=== PATIENT | female | born 2000 | race African-American/Black ===

== ENCOUNTER 2019-05-02 13:06 | Emergency (ER) | payer SELFPAY ==
[2019-05-02 13:39] LABS: #Eosinphils 0.1 thou/uL (0.0-0.7); #Lymphocytes 2.2 thou/uL (1.20-3.40); #Monocytes 0.3 thou/uL (0.11-0.59); #Neutrophils 2.7 thou/uL (1.40-6.50); %Basophils 0.4 % (0.0-1.0); %Eosinophils 2.1 % (0.0-10.0); %Lymphocytes 41.6 % (28.0-48.0); %Monocytes 5.7 % (0.0-4.0); %Neutrophils 50.3 % (31.0-61.0); Hemoglobin 13.5 g/dL (12.0-16.0); Mean Corpuscular HGB CONC 33.7 g/dL (32.0-36.0); Mean Corpuscular Hemoglobin 30.5 pg (25.0-35.0); Mean Corpuscular Volume 90.4 fL (78.0-98.0); Platelet Count 227 thou/uL (130-400); RBC Distribution Width 12.4 % (11.5-14.5); Red Blood Cell (RBC) Count 4.44 mill/uL (4.00-5.20); White Blood Cell (WBC) Count 5.3 thou/uL (4.8-10.8)
[2019-05-02 14:00] LABS: ALT (SGPT) 12 U/L (8-55); AST (SGOT) 15 U/L (5-34); Albumin 4.2 g/dL (3.5-5.0); Alkaline Phosphatase 86 U/L (40-150); Anion Gap 11 mmol/L (10-20); BUN (Urea Nitrogen) 8 mg/dL (7.0-18.7); Bilirubin, Total 0.4 mg/dL (0.2-1.2); Calc. Creatinine Clearance 0 mL/min (70-130); Calcium 9.3 mg/dL (7.8-10.44); Carbon Dioxide 25 mmol/L (22-29); Chloride 105 mmol/L (98-107); Estimated GFR-MDRD Greater than 90; Globulin 2.9 g/dL (2.4-3.5); Glucose 90 mg/dL (70-105); Lipase 14 U/L (8-78); Potassium 3.6 mmol/L (3.5-5.1); Protein, Total 7.1 g/dL (6.0-8.3); Sodium 137 mmol/L (136-145)
[2019-05-02 14:41] LABS: Bilirubin Negative (Negative); Blood, Urine Negative (Negative); Clarity Turbid (Clear); Glucose, Urine (Dipstick) Normal (Negative); Leukocyte Negative Leu/uL (Negative); Nitrite Negative (Negative); Protein, Urine (Dipstick) 20 mg/dL (Neg-Trace); Urobilinogen Normal mg/dL (Less than 2)
[2019-05-02 14:47] LABS: Pregnancy Test - Urine (BHCG) Negative (Negative); Pregu Control Background? CLEAR/WHITE (CLR/WHITE); Pregu Control Bar Appear? YES (CONTROL BAR); Specific Gravity 1.023 (1.002-1.036)
[2019-05-05 01:09] LABS: Chlamydia by PCR Not Detected (NotDetected); GC by PCR Not Detected (NotDetected)
== END 2019-05-02 16:50 | disposition home or self-care (01) ==
LOC: ERS 13:06
DX: B37.3 Candidiasis of vulva and vagina (principal); F17.210 Nicotine dependence, cigarettes, uncomplicated
CPT/HCPCS: 36415; 80053; 81003; 81025; 83690; 85025; 87480; 87491; 87510; 87591; 87660; 99283

== ENCOUNTER 2019-12-11 23:19 | Emergency (ER) | payer SELFPAY ==
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
[2019-12-12] MEDS ORDERED: Acetaminophen 500 MG TAB ONE (00:05)
== END 2019-12-12 00:30 | disposition home or self-care (01) ==
LOC: ERS 23:19
DX: S06.9X9A Unspecified intracranial injury with loss of consciousness of unspecified duration, initial encounter (principal); S50.01XA Contusion of right elbow, initial encounter; F17.210 Nicotine dependence, cigarettes, uncomplicated; Y04.0XXA Assault by unarmed brawl or fight, initial encounter
CPT/HCPCS: 70450

== ENCOUNTER 2020-01-08 21:36 | Emergency (ER) | payer SELFPAY ==
[2020-01-08 22:09] LABS: #Basophils 0.1 thou/uL (0.0-0.2); #Eosinphils 0.1 thou/uL (0.0-0.7); #Lymphocytes 1.9 thou/uL (1.20-3.40); #Monocytes 0.6 thou/uL (0.11-0.59); #Neutrophils 3.6 thou/uL (1.40-6.50); %Basophils 0.8 % (0.0-1.0); %Eosinophils 1.4 % (0.0-10.0); %Lymphocytes 30.9 % (28.0-48.0); %Monocytes 9.9 % (0.0-4.0); Hemoglobin 13.8 g/dL (12.0-16.0); Mean Corpuscular HGB CONC 34.4 g/dL (32.0-36.0); Mean Corpuscular Hemoglobin 30.9 pg (25.0-35.0); Mean Corpuscular Volume 89.9 fL (78.0-98.0); Mean Platelet Volume 9.1 fL (7.4-10.4); Platelet Count 313 thou/uL (130-400); RBC Distribution Width 12.2 % (11.5-14.5); Red Blood Cell (RBC) Count 4.46 mill/uL (4.00-5.20); White Blood Cell (WBC) Count 6.3 thou/uL (4.8-10.8)
[2020-01-08 22:32] LABS: ALT (SGPT) 15 U/L (8-55); AST (SGOT) 17 U/L (5-34); Acetaminophen Less than 6.0 mcg/mL (10.0-30.0); Albumin 4.7 g/dL (3.5-5.0); Alcohol 21 mg/dL (Less than 10); Alkaline Phosphatase 98 U/L (40-100); Anion Gap 15 mmol/L (10-20); BUN (Urea Nitrogen) 8 mg/dL (7.0-18.7); Bilirubin, Total 0.4 mg/dL (0.2-1.2); Calc. Creatinine Clearance 0 mL/min (70-130); Calcium 9.7 mg/dL (7.8-10.44); Carbon Dioxide 23 mmol/L (22-29); Chloride 106 mmol/L (98-107); Estimated GFR-MDRD 88; Globulin 3.2 g/dL (2.4-3.5); Glucose 83 mg/dL (70-105); Potassium 3.3 mmol/L (3.5-5.1); Protein, Total 7.9 g/dL (6.0-8.3); Salicylate Less than 8.0 mg/dL (15.0-30.0); Sodium 141 mmol/L (136-145)
[2020-01-09 02:58] LABS: Bilirubin Negative (Negative); Blood, Urine Negative (Negative); Glucose, Urine (Dipstick) Negative (Negative); Leukocyte Negative (Negative); Nitrite Negative (Negative); Protein, Urine (Dipstick) 100 mg/dL (Neg-Trace); Urobilinogen 0.2 mg/dL (Less than 2)
[2020-01-09 03:00] LABS: Clarity Clear (Clear)
[2020-01-09 03:01] LABS: Pregnancy Test - Urine (BHCG) Negative (Negative); Pregu Control Background? CLEAR/WHITE (CLR/WHITE); Pregu Control Bar Appear? YES (CONTROL BAR); Specific Gravity 1.027 (1.002-1.036)
[2020-01-09 03:04] LABS: Bacteria/HPF None Seen HPF (None Seen); RBC/HPF None Seen HPF (0-3); Renal Epithelial None Seen HPF (None Seen); Transitional Epithelial None Seen HPF (None Seen); WBC/HPF None Seen HPF (0-3)
[2020-01-09 03:07] LABS: Amphetamine Detected (NotDetected); Barbiturates Screen Not Detected (NotDetected); Benzodiazepine Screen Not Detected (NotDetected); Cocaine Metabolite Screen Not Detected (NotDetected); Medtox Control Line Valid? VALID (VALID); Medtox Reader # READER 4; Methadone Not Detected (NotDetected); Methamphetamine Detected (NotDetected); Opiate Screen Not Detected (NotDetected); Oxycodone Screen Not Detected (NotDetected); Phencyclidine (PCP) Not Detected (NotDetected); THC/Cannabinoid Screen Detected (NotDetected); Tricyclic Screen Not Detected (NotDetected)
[2020-01-09] MEDS ORDERED: traZODone HCl 50 MG TAB ONE (04:39)
== END 2020-01-09 15:31 | disposition home or self-care (01) ==
LOC: ERS 21:36
DX: F43.20 Adjustment disorder, unspecified (principal); F10.10 Alcohol abuse, uncomplicated; F17.210 Nicotine dependence, cigarettes, uncomplicated; Y90.1 Blood alcohol level of 20-39 mg/100 ml
CPT/HCPCS: 36415; 80053; 80306; 80307; 81003; 81015; 81025; 84443; 85025; 93005

== ENCOUNTER 2020-09-15 10:02 | Outpatient (CLI) | payer MEDICAID ==
[2020-09-15 17:57] LABS: SARS-CoV-2 MS2 Positive; SARS-CoV-2 N Gene Negative; SARS-CoV-2 S Gene Negative; SARS-CoV-2 by NAA Not Detected (NotDetected); SARS-CoV-2 orf1ab Negative
== END 2020-09-15 10:03 | disposition home or self-care (01) ==
LOC: LABBT 10:02
PROVIDERS: ATTEND Family Medicine
DX: Z20.828 Contact with and (suspected) exposure to other viral communicable diseases (principal)
CPT/HCPCS: 87635; U0003

== ENCOUNTER 2020-09-17 18:30 | Inpatient (IN) | payer MEDICAID, OTHER ==
[2020-09-17 19:31] VITALS: BMI 42.0
[2020-09-17] MEDS ORDERED: hydrALAZINE 20 MG/ML VIAL SLOW IVP PRN (20:53)
[2020-09-17] MEDS ORDERED: Lidocaine 1% (PF) 30 ML VIAL SC PRN (20:53)
[2020-09-17] MEDS ORDERED: NS / Oxytocin 40 units/1000ml 1,000 ML IV PRN (20:53)
[2020-09-17] MEDS ORDERED: NS w/ Oxytocin 10 units 500 ML IV SCH (21:00)
[2020-09-17 21:15] LABS: Hemoglobin 9.9 g/dL (12.0-16.0); Mean Corpuscular HGB CONC 34.6 g/dL (32.0-36.0); Mean Corpuscular Volume 89.4 fL (78.0-98.0); Mean Platelet Volume 10.3 fL (7.4-10.4); Platelet Count 168 thou/uL (130-400); RBC Distribution Width 13.7 % (11.5-14.5); Red Blood Cell (RBC) Count 3.21 mill/uL (4.20-5.40); White Blood Cell (WBC) Count 10.3 thou/uL (4.8-10.8)
[2020-09-17] MEDS ORDERED: Penicillin G Potassium 5 MILL.UNITS in Sodium Chloride 0.9% 100 ML IVPB SCH (21:15)
[2020-09-17 21:53] LABS: Syphilis Antibody Nonreactive (Nonreactive); Syphilis Antibody Index 0.04 S/CO (<1.00 Non-Reactive)
[2020-09-17 21:54] LABS: Hemoglobin 10.2 g/dL (12.0-16.0); Mean Corpuscular HGB CONC 34.2 g/dL (32.0-36.0); Mean Corpuscular Hemoglobin 31.1 pg (27.0-31.0); Mean Corpuscular Volume 90.9 fL (78.0-98.0); Mean Platelet Volume 9.5 fL (7.4-10.4); Platelet Count 166 thou/uL (130-400); RBC Distribution Width 13.4 % (11.5-14.5); Red Blood Cell (RBC) Count 3.28 mill/uL (4.20-5.40); White Blood Cell (WBC) Count 10.5 thou/uL (4.8-10.8)
[2020-09-17 22:10] LABS: Eosinophils 2 % (0-10); Lymphocytes 18 % (21-51); MDiff Complete? YES; Monocytes 9 % (0-10); Neutrophil 71 % (42-75)
--- NOTE | 2020-09-17 22:29 | PDOC.FPROB ---
FMR OB H&P: HPI - History of Present Illness Chief Complaint: mIOL for IUGR Indentification: 20 y/o at 37.4 wga by 12.2 wk sono. History of Present Illness: Pt is a 20 y/o at 37.4 wga by 12.2 wk sono who presents today for mIOL due to IUGR. Pt has been following with MFM for this. Pt states today that she is feeling well. Endorses movement and denies VB, VD, LOF, or CP/SOB, vision changes/headaches, blurry vision. 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: -hx of BV 02/13 -hx of patricia 05/15 - Surgical History Sx History: -none - Social History Social History: -tobacco use in first trimester, -no alcohol -no current drug use, has used THC in the past - Family History Family History: -FOB has child with CHD -family hx of down syndrome FMR OB H&P: Medications - Current Home Medications: Medication Instructions Recorded Confirmed Type 21/Iron Fu/Folic Acid 1 tablet PO DAILY 09/17/20 09/17/20 History [ Complete Caplet] Allergies/Adverse Reactions: Allergies Allergy/AdvReac Type Severity Reaction Status Date / Time No Known Allergies Allergy Verified 09/17/20 19:39 FMR OB H&P: ROS - Review of Systems General: denies: fever/chills, weight/appetite/sleep changes Eyes: denies: vision changes ENT: denies: nasal congestion, rhinorrhea Cardiovascular: denies: chest pain, palpitation Respiratory: denies: cough, congestion, shortness of breath Gastrointestinal: denies: abdominal pain, indigestion, bloating, cramping, nausea, vomiting, diarrhea, constipation Genitourinary (Female): denies: incontinence, dysuria, hematuria, polyuria, vaginal discharge, vaginal pain, vaginal bleeding, contractions Musculoskeletal: denies: pain FMR OB H&P: Vital Signs - Maternal Vital signs: BP 127/62, HR 90 , RR 18, Temp 98.6 - Heart Tones Baseline: 130 Variability: moderate Acceleration: present Deceleration: absent Category: category 1 [employer] contractions every: none seen on toco FMR OB H&P: Physical Exam - Physical Exam General: NAD, awake, alert and oriented Neck: supple Heart: RRR, normal S1/S2, no murmurs/rubs/gallops General: CTAB, no respiratory distress, good air movement, no rales/rhonchi, no wheezing, no retractions Abdomen: gravid Musculoskeletal: FROM in all four extremities Neurological: no focal deficit Skin: no rash, good tugor Psychiatric: intact recent and remote memory, good judgement and insight, normal mood and affect - Pelvic Exam Vulva: normal hair distribution Cervix: no masses, no lesions, no blood SVE: close, thick, high FMR OB H&P: Results - Labs Lab results: Laboratory Results - last 24 hr 09/17/20 09/17/20 09/17/20 21:05 21:05 21:05 WBC 10.3 RBC 3.21 L Hgb 9.9 L Hct 28.7 L MCV 89.4 MCH 31.0 MCHC 34.6 RDW 13.7 Plt Count 168 MPV 10.3 Neutrophils % (Manual) Lymphocytes % (Manual) Monocytes % (Manual) Eosinophils % (Manual) Syphilis IgG/IgM Ab Nonreactive Blood Type A POSITIVE Antibody Screen NEGATIVE 09/17/20 09/17/20 21:31 21:34 WBC 10.5 RBC 3.28 L Hgb 10.2 L Hct 29.8 L MCV 90.9 MCH 31.1 H MCHC 34.2 RDW 13.4 Plt Count 166 MPV 9.5 Neutrophils % (Manual) 71 Lymphocytes % (Manual) 18 L Monocytes % (Manual) 9 Eosinophils % (Manual) 2 Syphilis IgG/IgM Ab Blood Type A POSITIVE Antibody Screen FMR OB H&P: A/P Disposition: Pt is a 20 y/o at 37.4 wga by 12.2 wk sono presents for mIOL for IUGR ##sIUP presenting for mIOL -has been following with [facility] for growth scans for IUGR as well as FOB with child with CHD and most recent sono report from [facility] 09/06 showed growth was in 21st percentile with AC lagging in 9%, so had continued recommendation with induction prior to 38 wga. -maternal labs have been negative -FHT with FHR in 130s-140s with moderate variability, some acels seen, no toco ctx seen at this time -SVE: 0/0/-3 @ 22:30, cytotec placed at this time -Epidural desired -GBS positive, ppx will be given ## Gestational Diabetes with hx of excessive weight gain in this > 35 lbs -fasting glucose based on chart review was 92 -has been txt'd with diet and exercise counseling -Q4 glucose checks with Q1 during labor -aware ## Tobacco use in -aware ##Hx of bipolar disorder -aware, currently not on medication -has been f/u with [facility] during ##iron deficiency anemia during -aware -has been taking PNV and iron medication -recent H/H from 09/05 showed 9.07/26 PCP: NOAH Bolivar/Stephen Plan: cytotec placed. will continue to monitor and recheck in 3-4 hours. Discussion: Date/Time: 09/17/202228 This H&P was discussed with Dr. Dawn who agreed with plan and assessment. Addendum - Attending - Attending Attestation Date/Time: 09/18/20 [id number] I personally evaluated the patient and discussed the management with Dr. Roach and Dr Robledo last night at time of admission. I agree with the History, Examination, Assessment and Plan documented above with any addition or exceptions noted below.
[2020-09-17] MEDS: Misoprostol 100 MCG TAB VAG SCH (22:40)
[2020-09-18 00:20] LABS: HBSAg Index 0.15 S/CO (0-0.99); Hep B Surf Ag Non-Reactive S/CO (NonReactive)
[2020-09-18 03:20] LABS: Glucose 77 mg/dL (70-105)
[2020-09-18] MEDS: Misoprostol 100 MCG TAB VAG SCH ×2 (03:40→08:41)
[2020-09-18] MEDS ORDERED: Fentanyl 4 mcg/Bup 0.1% Cadd 100 ML in Premix Bag 1 BAG EPIDURAL SCH (04:00)
--- NOTE | 2020-09-18 04:37 | PDOC.LDPN ---
Labor & Delivery Progress Note - Subjective Subjective: comfortable - Objective Vital signs reviewed and normal: yes General: NAD Dilation: 0/0/-3 FHT: category 1, variability present [place] contractions every: none seen at this time Plan: continue plan of care -: Pt is a 20 y/o at 37.4 wga by 12.2 wk sono presents for mIOL for IUGR ##sIUP presenting for mIOL -has been following with [facility] for growth scans for IUGR as well as FOB with child with CHD and most recent sono report from [facility] 09/06 showed growth was in 21st percentile with AC lagging in 9%, so had continued recommendation with induction prior to 38 wga. -maternal labs have been negative -FHT with FHR in 130s-140s with moderate variability, some acels seen, no toco ctx seen at this time -SVE: 0/0/-3 @ 22:30, cytotec placed at this time -SVE: 0/0/-3 @ 0340, 2nd cytotec placed at this time -Epidural desired -GBS positive, ppx will be given ## Gestational Diabetes with hx of excessive weight gain in this > 35 lbs -fasting glucose based on chart review was 92 -has been txt'd with diet and exercise counseling -Q4 glucose checks with Q1 during labor -aware ## Tobacco use in -aware ##Hx of bipolar disorder -aware, currently not on medication -has been f/u with [facility] during ##iron deficiency anemia during -aware -has been taking PNV and iron medication -recent H/H from 09/05 showed 9.07/26 PCP: NOAH Horner Plan: 2nd cytotec placed. will continue to monitor and recheck in 3-4 hours.
[2020-09-18] MEDS ORDERED: ePHEDrine 50 MG/ML VIAL SLOW IVP PRN (05:08)
[2020-09-18] MEDS ORDERED: Ondansetron PF 4 MG/2 ML Vial IVP PRN (05:08)
[2020-09-18] MEDS ORDERED: Naloxone HCl 0.4 mg/ml Vial IVP PRN ×2 (05:08)
[2020-09-18] MEDS ORDERED: Promethazine HCl 25 MG/ML VIAL IM PRN (05:08)
[2020-09-18] MEDS ORDERED: diphenhydrAMINE 50 MG/ML VIAL IVP PRN (05:08)
[2020-09-18] MEDS ORDERED: Acetaminophen 325 MG TAB PO PRN (05:08)
[2020-09-18] MEDS ORDERED: Lactated Ringer's 500 ML IV PRN (05:08)
[2020-09-18] MEDS ORDERED: Communication Order-Pharmacy FS SCH (05:15)
[2020-09-18] MEDS: Lactated Ringer's 1,000 ML IV SCH ×2 (06:05→21:53)
[2020-09-18] MEDS: Ondansetron PF 4 MG/2 ML Vial IVP PRN (07:07)
--- NOTE | 2020-09-18 08:39 | PDOC.LDPN ---
Labor & Delivery Progress Note - Subjective Subjective: comfortable - Objective Vital signs reviewed and normal: yes General: NAD Uterine fundus: non tender Dilation: Closed Effacement: 0% Station: -3 FHT: category 1 (+ accels, no decels, moderate variability, FHT 130 baseline) [place] contractions every: Patient reports ~Q2-3min Plan: continue plan of care -: Pt is a 20 y/o at 37.4 wga by 12.2 wk sono admitted for mIOL due to IUGR ##sIUP presenting for mIOL Has been following with [facility] for growth scans for IUGR as well as FOB with child with CHD and most recent sono report from [facility] 09/06 showed growth was in 21st percentile with AC lagging in 9%, so had continued recommendation with induction prior to 38 wga. -Maternal labs negative -Epidural in place -GBS +, PCN ppx will be given 2230 0/0/-3, cytotec #1 placed 0340 0/0/-3, cytotec #2 placed 0700 reviewed strip, met criteria for uterine tachysystole 0800 0/0/-3, patient reports contractions Q2-3 min however not on monitor ## Gestational Diabetes with hx of excessive weight gain in this > 35 lbs -fasting glucose based on chart review was 92 -has been txt'd with diet and exercise counseling -Q4 glucose checks with Q1 during labor -aware ## Tobacco use in -aware ##Hx of bipolar disorder -aware, currently not on medication -has been f/u with [facility] during ##iron deficiency anemia during -aware -has been taking PNV and iron medication -recent H/H from 09/05 showed .07/26 PCP: NOAH Horner Plan: Place patient on monitor to determine rate of contractions. Will determine further labor augmentation pending contraction pattern
[2020-09-18] MEDS: Promethazine HCl 25 MG/ML VIAL IM PRN (10:33)
[2020-09-18] MEDS: Fentanyl 4 mcg/Bupivacaine 0.1% Cassette 100 ML EPIDURAL SCH ×2 (11:49→18:38)
--- NOTE | 2020-09-18 12:47 | PDOC.LDPN ---
Labor & Delivery Progress Note - Subjective Subjective: comfortable - Objective Vital signs reviewed and normal: yes General: NAD Uterine fundus: non tender Dilation: 2 Effacement: 25% Station: -3 FHT: category 1 [place] contractions every: 0 Procedures: Cook Balloon placed Plan: continue plan of care, labor augmentation, pitocin for augmentation -: Pt is a 20 y/o at 37.4 wga by 12.2 wk sono admitted for mIOL due to IUGR ##sIUP presenting for mIOL Has been following with [facility] for growth scans for IUGR as well as FOB with child with CHD and most recent sono report from [facility] 09/06 showed growth was in 21st percentile with AC lagging in 9%, so had continued recommendation with induction prior to 38 wga. -Maternal labs negative -Epidural in place -GBS +, PCN ppx will be given 2230 0/0/-3, cytotec #1 placed 0340 0/0/-3, cytotec #2 placed 0700 reviewed strip, met criteria for uterine tachysystole 0800 0/0/-3, patient reports contractions Q2-3 min however not on monitor 0900 uterine tachysystole resolved, grant Q4-5 min, cytotec #3 placed 1330 2/25/-3, balloon placed, start pit ## Gestational Diabetes with hx of excessive weight gain in this > 35 lbs -fasting glucose based on chart review was 92 -has been txt'd with diet and exercise counseling -Q4 glucose checks with Q1 during labor -aware ## Tobacco use in -aware ##Hx of bipolar disorder -aware, currently not on medication -has been f/u with [facility] during ##iron deficiency anemia during -aware -has been taking PNV and iron medication -recent H/H from 09/05 showed 9.07/26 PCP: TAMP: Nusrat/Stephen Plan: Cook balloon placed. Will start pit for labor augmentation.
[2020-09-18] MEDS: NS w/ Oxytocin 10 units 500 ML IV SCH (14:05)
--- NOTE | 2020-09-18 16:41 | PDOC.LDPN ---
Labor & Delivery Progress Note - Subjective Subjective: comfortable - Objective Vital signs reviewed and normal: yes General: NAD FHT: category 1 (+ accels, no decels, moderate variability) [place] contractions every: 0 Plan: continue plan of care -: Pt is a 20 y/o at 37.4 wga by 12.2 wk sono admitted for mIOL due to IUGR ##sIUP presenting for mIOL Has been following with [facility] for growth scans for IUGR as well as FOB with child with CHD and most recent sono report from [facility] 09/06 showed growth was in 21st percentile with AC lagging in 9%, so had continued recommendation with induction prior to 38 wga. -Maternal labs negative -Epidural in place -GBS +, PCN ppx will be given 2230 on 09/18: 0/0/-3, cytotec #1 placed 0340 0/0/-3, cytotec #2 placed 0700 reviewed strip, met criteria for uterine tachysystole 0800 0/0/-3, patient reports contractions Q2-3 min however not on monitor 0900 uterine tachysystole resolved, grant Q4-5 min, cytotec #3 placed 1330 2/25/-3, balloon placed, start pit [address], cat 1 strip, irregular contractions ## Gestational Diabetes with hx of excessive weight gain in this > 35 lbs -fasting glucose based on chart review was 92 -has been txt'd with diet and exercise counseling -Q4 glucose checks with Q1 during labor -aware ## Tobacco use in -aware ##Hx of bipolar disorder -aware, currently not on medication -has been f/u with [facility] during ##iron deficiency anemia during -aware -has been taking PNV and iron medication -recent H/H from 09/05 showed .07/26 PCP: TAMP: Nusrat/Stephen Plan: Continue to titrate pit for labor augmentation
--- NOTE | 2020-09-18 20:11 | PDOC.LDPN ---
Labor & Delivery Progress Note - Subjective Subjective: comfortable - Objective Vital signs reviewed and normal: yes General: NAD Uterine fundus: non tender Dilation: 4 Effacement: 50% Station: -2 FHT: category 1 [place] contractions every: sporadic contractions seen, about every 10 when they occur Plan: pitocin for augmentation -: Pt is a 20 y/o at 37.4 wga by 12.2 wk sono admitted for mIOL due to IUGR ##sIUP presenting for mIOL Has been following with [facility] for growth scans for IUGR as well as FOB with child with CHD and most recent sono report from [facility] 09/06 showed growth was in 21st percentile with AC lagging in 9%, so had continued recommendation with induction prior to 38 wga. -Maternal labs negative -Epidural in place -GBS +, PCN ppx will be given 2230 on 09/18: 0/0/-3, cytotec #1 placed 0340 0/0/-3, cytotec #2 placed 0700 reviewed strip, met criteria for uterine tachysystole 0800 0/0/-3, patient reports contractions Q2-3 min however not on monitor 0900 uterine tachysystole resolved, grant Q4-5 min, cytotec #3 placed 1330 2/25/-3, balloon placed, start pit [address], cat 1 strip, irregular contractions 1950 balloon taken out, SVE /-2, PCN ppx to be started at this time ## Gestational Diabetes with hx of excessive weight gain in this > 35 lbs -fasting glucose based on chart review was 92 -has been txt'd with diet and exercise counseling -Q6H glucose checks for now, will increase freq during active labor -aware ## Tobacco use in -aware ##Hx of bipolar disorder -aware, currently not on medication -has been f/u with [facility] during ##iron deficiency anemia during -aware -has been taking PNV and iron medication -recent H/H from 09/05 showed .07/26 PCP: NOAH Silverio/Stephen Plan: continue with pitocin and titrate as necessary. will recheck in 4 hours. Addendum - Attending - Attending Attestation Date/Time: 09/19/20 0240 I personally evaluated the patient and discussed the management with Dr. Roach. I agree with the History, Examination, Assessment and Plan documented above with any addition or exceptions noted below.
--- NOTE | 2020-09-19 00:17 | PDOC.LDPN ---
Labor & Delivery Progress Note - Subjective Subjective: comfortable - Objective Vital signs reviewed and normal: yes General: NAD Uterine fundus: non tender FHT: category 1 Plan: continue plan of care -: Pt is a 20 y/o at 37.4 wga by 12.2 wk sono admitted for mIOL due to IUGR ##Bethany presenting for mIOL Has been following with [facility] for growth scans for IUGR as well as FOB with child with CHD and most recent sono report from [facility] 09/06 showed growth was in 21st percentile with AC lagging in 9%, so had continued recommendation with induction prior to 38 wga. -Maternal labs negative -Epidural in place -GBS +, PCN ppx will be given 2230 on 09/18: 0/0/-3, cytotec #1 placed 0340 0/0/-3, cytotec #2 placed 0700 reviewed strip, met criteria for uterine tachysystole 0800 0/0/-3, patient reports contractions Q2-3 min however not on monitor 0900 uterine tachysystole resolved, grant Q4-5 min, cytotec #3 placed 1330 2/25/-3, balloon placed, start pit [address], cat 1 strip, irregular contractions 195 balloon taken out, SVE 4/50/-2, PCN ppx to be started at this time 0010 SVE 5/65/-2, cat 1 strip with recently seen contractions about 3-5 mins ## Gestational Diabetes with hx of excessive weight gain in this > 35 lbs -fasting glucose based on chart review was 92 -has been txt'd with diet and exercise counseling -Q6H glucose checks for now, will increase freq during active labor -aware ## Tobacco use in -aware ##Hx of bipolar disorder -aware, currently not on medication -has been f/u with [facility] during ##iron deficiency anemia during -aware -has been taking PNV and iron medication -recent H/H from 09/05 showed PCP: NOAH Silverio/Stephen Plan: continue with current plan. continue with pitocin and titrate as necessary. will recheck in 4 hours. Addendum - Attending - Attending Attestation Date/Time: 09/19/20 0240 I personally evaluated the patient and discussed the management with Dr. Roach. I agree with the History, Examination, Assessment and Plan documented above with any addition or exceptions noted below.
[2020-09-19] MEDS: Fentanyl 4 mcg/Bupivacaine 0.1% Cassette 100 ML EPIDURAL SCH ×3 (01:07→12:05)
[2020-09-19] MEDS: Penicillin G 2.5 MILL.units 2.5 MILL.UNITS in Premix Bag 1 BAG IVPB SCH ×6 (01:35→21:14)
[2020-09-19] MEDS: Ondansetron PF 4 MG/2 ML Vial IVP PRN (02:52)
--- NOTE | 2020-09-19 05:37 | PDOC.LDPN ---
Labor & Delivery Progress Note - Subjective Subjective: comfortable - Objective Vital signs reviewed and normal: yes General: NAD Uterine fundus: non tender SVE: 6.5/70/-1 FHT: category 1 [place] contractions every: none currently seen AROM: clear fluid Plan: continue plan of care -: Pt is a 20 y/o at 37.6 wga by 12.2 wk sono admitted for mIOL due to IUGR ##sIUP presenting for mIOL Has been following with [facility] for growth scans for IUGR as well as FOB with child with CHD and most recent sono report from [facility] 09/06 showed growth was in 21st percentile with AC lagging in 9%, so had continued recommendation with induction prior to 38 wga. -Maternal labs negative -Epidural in place -GBS +, PCN ppx will be given 2230 on 09/18: 0/0/-3, cytotec #1 placed 0340 0/0/-3, cytotec #2 placed 0700 reviewed strip, met criteria for uterine tachysystole 0800 0/0/-3, patient reports contractions Q2-3 min however not on monitor 0900 uterine tachysystole resolved, grant Q4-5 min, cytotec #3 placed 1330 2/25/-3, balloon placed, start pit [address], cat 1 strip, irregular contractions 195 balloon taken out, SVE 4/50/-2, PCN ppx to be started at this time 0010 SVE 5/65/-2, cat 1 strip with recently seen contractions about 3-5 mins 0405 SVE 6.5/70/-1, cat 1 strip, AROM @ 0430, clear fluid seen ## Gestational Diabetes with hx of excessive weight gain in this > 35 lbs -fasting glucose based on chart review was 92 -has been txt'd with diet and exercise counseling -Q6H glucose checks for now, will increase freq during active labor -aware ## Tobacco use in -aware ##Hx of bipolar disorder -aware, currently not on medication -has been f/u with [facility] during ##iron deficiency anemia during -aware -has been taking PNV and iron medication -recent H/H from 09/05 showed 9.07/26 PCP: NOAH Silverio/Stephen Plan: continue with current plan. continue with pitocin. will recheck in 2 hours.
[2020-09-19] MEDS: Lactated Ringer's 1,000 ML IV SCH ×3 (05:43→21:15)
--- NOTE | 2020-09-19 08:21 | PDOC.LDPN ---
Labor & Delivery Progress Note - Subjective Subjective: comfortable - Objective Vital signs reviewed and normal: yes General: NAD Uterine fundus: non tender Dilation: 6 Station: -1 FHT: category 1 (+ accels, no decels, moderate variability, FHT 120 baseline) [place] contractions every: Unable to monitor on toco Procedures: IUPC placed Plan: continue plan of care -: Pt is a 20 y/o at 37.6 wga by 12.2 wk sono admitted for mIOL due to IUGR ##sIUP presenting for mIOL Has been following with [facility] for growth scans for IUGR as well as FOB with child with CHD and most recent sono report from [facility] 09/06 showed growth was in 21st percentile with AC lagging in 9%, so had continued recommendation with induction prior to 38 wga. -Maternal labs negative -Epidural in place -GBS +, PCN ppx will be given 2230 on 09/17: 0/0/-3, cytotec #1 placed 0340 on 09/18: 0/0/-3, cytotec #2 placed 0700 reviewed strip, met criteria for uterine tachysystole 0800 0/0/-3, patient reports contractions Q2-3 min however not on monitor 0900 uterine tachysystole resolved, grant Q4-5 min, cytotec #3 placed 1330 12/21/-3, balloon placed, start pit [address], cat 1 strip, irregular contractions 1951 balloon taken out, SVE 4/50/-2, PCN ppx to be started at this time 0010 on 09/19: SVE 5/65/-2, cat 1 strip with recently seen contractions about 3- 5 mins 0405 SVE 6.5/70/-1, cat 1 strip, AROM @ 0430, clear fluid seen 0700 6/70/-1, cat 1 strip 0745 IUPC placed ## Gestational Diabetes with hx of excessive weight gain in this > 35 lbs -fasting glucose based on chart review was 92 -has been txt'd with diet and exercise counseling -Q6H glucose checks for now, will increase freq during active labor -aware ## Tobacco use in -aware ##Hx of bipolar disorder -aware, currently not on medication -has been f/u with [facility] during ##iron deficiency anemia during -aware -has been taking PNV and iron medication -recent H/H from 09/05 showed 9.07/26 PCP: NOAH Silverio/Stephen Plan: continue with pit titration. Patient will use peanut ball as well. Recheck at 0900.
[2020-09-19] MEDS: Promethazine HCl 25 MG/ML VIAL IM PRN (10:35)
--- NOTE | 2020-09-19 10:35 | PDOC.LDPN ---
Labor & Delivery Progress Note - Subjective Subjective: comfortable - Objective Vital signs reviewed and normal: yes General: NAD, breathing through contractions Dilation: 6 Effacement: 75% Station: -1 FHT: category 1 (+accels, no decels, moderate variability) [place] contractions every: 3-4min Resuscitative measures: maternal position change Plan: continue plan of care, pitocin for augmentation -: Pt is a 20 y/o at 37.6 wga by 12.2 wk sono admitted for mIOL due to IUGR ##sIUP presenting for mIOL Has been following with [facility] for growth scans for IUGR as well as FOB with child with CHD and most recent sono report from [facility] 09/06 showed growth was in 21st percentile with AC lagging in 9%, so had continued recommendation with induction prior to 38 wga. -Maternal labs negative -Epidural in place -GBS +, PCN ppx given 2230 on 09/17: 0/0/-3, cytotec #1 placed 0340 on 09/18: 0/0/-3, cytotec #2 placed 0700 reviewed strip, met criteria for uterine tachysystole 0800 0/0/-3, patient reports contractions Q2-3 min however not on monitor 0900 uterine tachysystole resolved, grant Q4-5 min, cytotec #3 placed 1330 12/21/-3, balloon placed, start pit [address], cat 1 strip, irregular contractions 1951 balloon taken out, SVE 4/50/-2, PCN ppx to be started at this time 0010 on 09/19: SVE 5/65/-2, cat 1 strip with recently seen contractions about 3- 5 mins 0405 SVE 6.5/70/-1, cat 1 strip, AROM @ 0430, clear fluid seen 0700 6/70/-1, cat 1 strip 0745 IUPC placed 1030 6/80/-1, extensive conversation with the patient and her regarding risks and benefits of . Patient reports she is tired, is unable to tolerate position changes and desires a regardless of risks. Plan to proceed due to arrest of dilation, maternal exhaustion and patient preference. 1111 Patient had discussion with mother. Agreed to increasing pit and maternal position changes. Will recheck at 1300. ## Gestational Diabetes with hx of excessive weight gain in this > 35 lbs -fasting glucose based on chart review was 92 -has been txt'd with diet and exercise counseling -Q6H glucose checks for now, will increase freq during active labor -aware ## Tobacco use in -aware ##Hx of bipolar disorder -aware, currently not on medication -has been f/u with [facility] during ##iron deficiency anemia during -aware -has been taking PNV and iron medication -recent H/H from 09/05 showed .07/26 PCP: NOAH Silverio/Stephen Plan: Titrate pit. Maternal position changes. Recheck at 1300
[2020-09-19] MEDS ORDERED: Bupivacaine 0.25% HCL 30 ML VIAL ONE (10:42)
[2020-09-19] MEDS ORDERED: Bicitra 30 ML UDCUP PO SCH (11:00)
[2020-09-19] MEDS ORDERED: CEFAZOLIN 2 GM in Premix Bag 1 BAG IVPB SCH (11:00)
[2020-09-19] MEDS ORDERED: Azithromycin 500 MG in Sodium Chloride 0.9% 250 ML 250 ML IVPB SCH (11:00)
--- NOTE | 2020-09-19 11:04 | PDOC.EVN ---
Event Note - Event Note Event Note: I was called by the residents to talk to her about options for delivery going forward. She states she is exhausted and just wants to have her baby. She is now requesting a delivery. She has been unchanged since 399 but has not tolerated augmentation due to maternal discomfort. I discussed with the patient and her the r/b/a/i at this time for delivery including intraoperative bleeding, internal organ damage, need for blood transfusion, and risks associated with future pregnancies. She and her stated that they would like to have 5 children. I informed them while it could be possible to have 5 deliveries, the risk of operative complications increases with each subsequent . I also discussed the 8-12 week recovery time that goes with a vs a 6 week recovery with and . She states she is tired and wants to have her baby ANDREW regardless of the risks that are associated with a . Her states her mother is coming up to the hospital to visit her and that she will make a decision after she talks to her mother but at this time she is strongly favoring a pLTCS. Indications at this time: Arrest of dilation maternal exhaustion patient preference
[2020-09-19] MEDS ORDERED: Butorphanol Tartrate 1 MG/ML VIAL SLOW IVP PRN (11:53)
--- NOTE | 2020-09-19 13:30 | PDOC.EVN ---
Event Note - Event Note Event Note: unchanged. arrest of dilation. patient requests pLTCS. will proceed when OR available. status reassuring.
[2020-09-19] MEDS ORDERED: Fentanyl 100 MCG/2 ML VIAL ONE ×3 (13:49→16:38)
[2020-09-19] MEDS ORDERED: Lidocaine 2% 10 ML INJ ONE (14:12)
[2020-09-19] MEDS ORDERED: Oxytocin 10 UNITS/ML VIAL ONE ×2 (14:35→15:45)
[2020-09-19] MEDS ORDERED: PHENYLEPHRINE-NS 100 MCG/ML 10 ML SYRINGE ONE ×3 (14:35→15:37)
[2020-09-19] MEDS ORDERED: Promethazine HCl 25 MG/ML VIAL ONE (15:24)
[2020-09-19] MEDS ORDERED: ePHEDrine 50 MG/ML VIAL ONE (15:26)
[2020-09-19] MEDS ORDERED: Midazolam HCl 2 mg/2 ml Vial ONE ×2 (15:37→16:43)
[2020-09-19 15:45] LABS: Actual Bicarbonate (HCO3a) 22.9 mEq/L (22-28); Base Excess (BEa) -3.8 mEq/L (-2.0 to +3.0)
[2020-09-19 15:47] LABS: Actual Bicarbonate (HCO3v) 23 mEq/L (22-28); Base Excess -2.4 mEq/L (-2.0 to +3.0); pH (Cord, venous) 7.37 (7.32-7.43)
[2020-09-19] MEDS ORDERED: Ketorolac Tromethamine 30 MG/ML VIAL IVP PRN (16:54)
[2020-09-19] MEDS ORDERED: Ondansetron HCl/PF 4 MG/2 ML Vial IVP PRN (16:54)
[2020-09-19] MEDS ORDERED: Naloxone HCl 0.4 mg/ml Vial IVP PRN ×4 (16:54→21:31)
[2020-09-19] MEDS ORDERED: diphenhydrAMINE 50 MG/ML VIAL IVP PRN ×2 (16:54→21:31)
[2020-09-19] MEDS ORDERED: L&D-Morphine 4 MG/ML VIAL SLOW IVP PRN (16:54)
[2020-09-19] MEDS ORDERED: HYDROmorphone 2 MG/ML VIAL SLOW IVP PRN (16:54)
[2020-09-19] MEDS ORDERED: Promethazine HCl 25 MG SUPP PR PRN ×2 (16:54→21:31)
[2020-09-19] MEDS ORDERED: Promethazine HCl 25 MG/ML VIAL IM PRN ×2 (16:54→21:31)
[2020-09-19] MEDS ORDERED: Naloxone HCl 0.4 mg/ml Vial IV PRN ×2 (16:54→21:31)
[2020-09-19] MEDS ORDERED: Ondansetron PF 4 MG/2 ML Vial IVP PRN ×2 (16:54→21:31)
[2020-09-19] MEDS ORDERED: Meperidine HCl/PF 25 MG/ML VIAL SLOW IVP PRN (16:54)
[2020-09-19] MEDS ORDERED: Ketorolac Tromethamine 30 MG/ML VIAL IVP SCH (17:00)
[2020-09-19] MEDS ORDERED: Communication Order-Pharmacy FS SCH ×2 (17:00→21:45)
[2020-09-19] MEDS ORDERED: Meperidine HCl/PF 25 MG/ML VIAL ONE (17:13)
[2020-09-19] MEDS ORDERED: Ketorolac Tromethamine 30 MG/ML VIAL ONE (18:56)
[2020-09-19] MEDS ORDERED: Morphine 4 MG/ML VIAL ONE (19:20)
[2020-09-19] MEDS ORDERED: Morphine 4 MG/ML VIAL SLOW IVP PRN (19:22)
--- NOTE | 2020-09-19 20:33 | PDOC.BPN ---
- Brief Progress Note Encounter Date: 09/19/20 Encounter Time: 20:20 4 Hour Post-Operative Note: S: Resting comfortably, holding baby Aquilino. Reports pain around and above her incision. Otherwise feeling well; denies dizziness, SOB, chest pain, palpitations. O: Tachycardia in 110s during recovery period. Tender to light palpation over incisional area. Per report, has been refusing fundal massage today 2/2 pain. Pressure dressing over incision appears clean/dry/intact. Received 4 mg morphine and a dose of dilaudid just prior to post-op check Appropriate UOP 1300 cc over past 4 hours. A/P: - Appropriate QBL: delivery 695 ml, recovery 50 ml - Appropriate UOP: 1300 cc in recovery - Inappropriately tender to palpation, tachycardia. Will check H/H at 2100. - Continue PRN therapy for pain control - Monitor for worsening of pain or if develops symptoms of anemia. Discussed with Dr. Bryson. Arsenio Kaufman, , PGY-1
[2020-09-19] MEDS ORDERED: NS / Oxytocin 40 units/1000ml 1,000 ML IV SCH (21:07)
[2020-09-19] MEDS ORDERED: HYDROcodone/Acetaminophen 5/325 mg Tablet PO PRN ×2 (21:07)
[2020-09-19] MEDS ORDERED: Misoprostol 200 MCG TAB PR PRN (21:07)
[2020-09-19] MEDS ORDERED: Simethicone Chewable 80 MG TAB PO PRN (21:07)
[2020-09-19] MEDS ORDERED: Methylergonovine 0.2 MG TAB PO PRN (21:07)
[2020-09-19] MEDS ORDERED: Methylergonovine 0.2 MG/ML VIAL IM PRN (21:07)
[2020-09-19] MEDS ORDERED: Lanolin Ointment 7 GM TUBE TOP PRN (21:07)
[2020-09-19] MEDS ORDERED: hydrALAZINE 20 MG/ML VIAL SLOW IVP PRN (21:07)
[2020-09-19] MEDS: Misoprostol 100 MCG TAB VAG SCH ×3 (21:11→21:13)
[2020-09-19] MEDS: NS w/ Oxytocin 10 units 500 ML IV SCH (21:11)
[2020-09-19] MEDS: Docusate Calcium (SURFAK) 240 MG CAP PO SCH (22:00)
[2020-09-19] MEDS: Ibuprofen 800 MG TAB PO SCH (22:00)
--- NOTE | 2020-09-19 22:00 | OP ---
DATE OF PROCEDURE: 09/19/2020 RESIDENT SURGEON: Kathy Mitchell MD. PROCEDURE: Primary low-transverse section. PREOPERATIVE DIAGNOSES: 1. Term intrauterine . 2. Arrest of dilatation. 3. Intrauterine IUGR. 4. A1 gestational diabetes mellitus. 5. Obesity with excessive weight gain in . 6. Maternal exhaustion. POSTOPERATIVE DIAGNOSES: 1. Term intrauterine , delivered. 2. Arrest of dilatation. 3. Intrauterine IUGR. 4. A1 gestational diabetes mellitus. 5. Obesity with excessive weight gain in . 6. Maternal exhaustion. 7. Persistent OP position. ANESTHESIA: Spinal. INDICATIONS: The patient is a 20-year-old, G1, P0 female at 37.6 weeks' gestation who presented for medical induction of labor for intrauterine growth restriction, but ultimately required delivery via primary low transverse section for failed induction of labor secondary to failure to progress. PROCEDURE IN DETAIL: After risks, benefits, and alternatives were explained to the patient, she gave informed consent. Preoperative antibiotics include cefazolin 2 g IV. The patient was taken to the operating room. Spinal anesthesia was initiated. She was placed in a supine position with the left tilt and prepped and draped in the usual sterile fashion. A Pfannenstiel incision was made with a scalpel and carried down to the level of the fascia, which was sharply nicked. The fascial cut was extended bilaterally bluntly. The inferior and superior edges of the cut fascial edges were elevated with Derrick clamps. The underlying rectus muscles were sharply and bluntly dissected free. The recti were divided digitally and retracted manually. The peritoneum was entered bluntly and retracted manually. The Yimi O retractor was placed. A low transverse score was made with a scalpel and the uterus was entered in the midline with the scalpel. Clear fluid was seen. The hysterotomy was extended medially. The was noted to be vertex, but in the OP position slightly asynclitic, but was ultimately delivered easily by fundal pressure. Mouth and nares were bulb suctioned. Cord clamped and cut. Grossly normal male. Infant was handed to awaiting nurse. Cord blood and cord segment were obtained. Placenta was spontaneously delivered and found to be intact with three-vessel cord and discarded. The uterus was externalized and the endometrium was curetted with a dry lap. The uterus was closed with a running locking 1-0 Monocryl suture, which included repair of a hysterotomy extension on the lateral most right edge of the hysterotomy which was repaired in a similar fashion. This was followed by a running nonlocking 1-0 Monocryl imbricating suture. Following this, some persistent bleeding was noted in the midline of the hysterotomy in a single [id number] suture using 1-0 Monocryl was applied, which ultimately achieved hemostasis. The abdomen was suctioned free of clots and the uterus was then internalized and the hysterotomy was closely visualized again and was noted to be hemostatic. The peritoneum was then closed using a running nonlocking 3-0 Monocryl suture. The muscle was then closed using a single 1-0 Monocryl horizontal mattress suture. The fascia was then closed using a running nonlocking 0 PDS suture. The subcutaneous tissue was then irrigated and free bleeders were cauterized using electrocautery. The subcutaneous layer was then closed using a running nonlocking 2-0 plain suture. The skin was approximated with 4-0 Monocryl suture and a pressure dressing was placed. All counts were correct. The patient tolerated the procedure well, and was taken to the recovery room in stable condition. QUANTITATIVE BLOOD LOSS: 695 mL. COMPLICATIONS: Right lateral hysterotomy extension inferiorly just to the edge of the active segment of the uterus. Given this and the fact that the patient was noted to have a narrow pelvis at the time of infant delivery, would be very cautious in recommending a TOLAC for this patient in future pregnancies. SPECIMENS: Cord blood and cord segment sent to the lab for blood type and blood gas analysis. FINDINGS: 1. Grossly normal male with Apgars of 8 and 9. 2. Grossly normal placenta with 3-vessel cord discarded. 3. Bandl's ring noted DRAINS: [place] to gravity draining clear urine. ATTENDING ADDENDUM: I was present for and supervised/performed all critical steps of this procedure. Her hysterotomy was made near the edge of the active segment with no extension into the active segment. The infant was well engaged in the pelvis at -1 station and was difficult to disengage. I would discourage future TOLAC attempts due to concern for active segment compromise and concern for inadequate maternal pelvic structure. Job ID: [id number] [facility]
[2020-09-19] MEDS: Ketorolac Tromethamine 30 MG/ML VIAL IVP PRN (22:10)
[2020-09-20 00:51] LABS: Hemoglobin 9.3 g/dL (12.0-16.0)
[2020-09-20] MEDS: Ibuprofen 800 MG TAB PO SCH ×3 (02:16→21:47)
[2020-09-20] MEDS: Lactated Ringer's 1,000 ML IV SCH ×3 (04:37→22:05)
[2020-09-20] MEDS: Ketorolac Tromethamine 30 MG/ML VIAL IVP PRN (05:51)
--- NOTE | 2020-09-20 07:16 | PDOC.OBPPN ---
FMR OB PN: Subj - Interval History Hospital Day: 4 Day: 1 Chief Complaint: abdominal pain Indentification: who is PP day #1 s/p pLTCS @ 37.6 WGA 2/2 arrest of dilation. Interval History: Tolerating PO. Pain somewhat controlled but still with IV meds overnight. FMR OB PN: Obj - Maternal Vital signs: BP: 120/58 HR: 97 RR: 18 Tmax: 99.3F Pox: 98% on RA Wt: 111 kg - Urine output I&O: 09/19/20 09/20/20 09/21/20 06:59 06:59 06:59 Intake Total 2 Output Total 4010 Balance -1918 - Lochia Lochia: WNLs - Pain Management Pain scale: 7 Intervention: IV medication FMR OB PN: Exam - Physical Exam General: NAD, awake, alert and oriented HEENT: normocephalic and atraumatic, MMM, grossly normal vision, grossly normal hearing Neck: supple, FROM Heart: RRR, normal S1/S2 General: CTAB, no respiratory distress, no wheezing Abdomen: soft, fundus(cm) (firm just below umbilicus) Musculoskeletal: normal gait and station, FROM in all four extremities Neurological: cranial nerves II through XII intact, sensation to pain,touch and proprioception grossly normal, no focal deficit Skin: no rash : bandage intact, incision healing well, no erythema, no edema, no drainage, other (moderately tender but suspect 2/2 low pain tolerance in patient as no overt s/s of infection on exam) Lymphatic: no unusual bruising or bleeding Psychiatric: intact recent and remote memory, good judgement and insight - Pelvic Exam : normal lochia FMR OB PN: Data - Labs Lab results: Laboratory Results - last 24 hr 09/19/20 09/19/20 09/19/20 04:24 09:12 13:34 Hgb Hct Bicarbonate Actual ABG Base Excess VBG HCO3 VBG Base Excess Cord ABG pH Cord ABG PCO2 (Cintia) Cord VBG pH Cord VBG pCO2 POC Glucose 83 77 83 09/19/20 09/19/20 09/19/20 15:31 15:31 21:45 Hgb Hct Bicarbonate Actual 22.9 ABG Base Excess -3.8 L VBG HCO3 23 VBG Base Excess -2.4 L Cord ABG pH 7.302 Cord ABG PCO2 (Cintia) 47.4 Cord VBG pH 7.37 Cord VBG pCO2 40.0 POC Glucose 103 H 09/20/20 09/20/20 00:25 06:01 Hgb 9.3 L Hct 26.8 L Bicarbonate Actual ABG Base Excess VBG HCO3 VBG Base Excess Cord ABG pH Cord ABG PCO2 (Cintia) Cord VBG pH Cord VBG pCO2 POC Glucose 96 FMR OB PN: A/P - Problem List (1) care following delivery Current Visit: Yes Status: Acute Code(s): Z39.2 - ENCOUNTER FOR ROUTINE FOLLOW-UP (2) Obesity Current Visit: Yes Status: Acute Code(s): E66.9 - OBESITY, UNSPECIFIED (3) Gestational diabetes Current Visit: Yes Status: Acute Code(s): O24.419 - GESTATIONAL DIABETES MELLITUS IN , UNSP CONTROL (4) IUGR (intrauterine growth restriction) Current Visit: Yes Status: Acute (5) Bipolar disease during Current Visit: Yes Status: Acute Code(s): O99.340 - [facility] MENTAL DISORDERS COMPLICATING , UNSP TRIMESTER; F31.9 - BIPOLAR DISORDER, UNSPECIFIED Disposition: 20YO who is PP day #1 s/p pLTCS @ 37.6 WGA for arrest of dilation, maternal exhaustion & patient's request. PP day #1 s/p pLTCS: Patient is tolerating PO. Ambulating but not voiding on her own yet as sahni still in place. Passing gas. Rates pain 7/10 with IV meds currently but improved with rest. Lochia & post-op bleeding WNLs. Will transition to PO pain meds today & see how she does. Continue routine post-C/S care. Gestational Diabetes with hx of excessive weight gain in this > 35 lbs -fasting glucose based on chart review was 92 -has been txt'd with diet and exercise counseling -accuchecks since delivery WNLs. Will likely d/c today. Regular diet ordered. -Needs DMII screen 6 weeks PP. Tobacco use in -[place] Hx of bipolar disorder -[place], currently not on medication -Needs to f/u with [facility] PP iron deficiency anemia during -[place] -admission H/H 9.9/28.7. Repeat this AM 8.7/25.2. Will continue PO iron & PNVs PP. PCP: NOAH Silverio/Stephen Plan: Continue routine post-C/S care with anticipated d/c Friday pending clinical course. Discussion: Date/Time: 09/20/20713 This H&P was discussed with Dr. Stone who agrees with the above documentation and plan. Addendum - Attending - Attending Attestation Date/Time: 09/20/20912 I personally evaluated the patient and discussed the management with Dr. Mitchell. I agree with the History, Examination, Assessment and Plan documented above with any addition or exceptions noted below. continue pp care. Obs today with possible d/c tomorrow. Anemia related to acute blood loss from C/S. iron supplementation.
[2020-09-20] MEDS ORDERED: HYDROcodone/Acetaminophen 5/325 mg Tablet PO PRN (07:38)
[2020-09-20 07:48] LABS: Hemoglobin 8.7 g/dL (12.0-16.0); Mean Corpuscular HGB CONC 34.4 g/dL (32.0-36.0); Mean Corpuscular Volume 90.1 fL (78.0-98.0); Mean Platelet Volume 9.9 fL (7.4-10.4); Platelet Count 148 thou/uL (130-400); White Blood Cell (WBC) Count 11.9 thou/uL (4.8-10.8)
[2020-09-20] MEDS: Ferrous Sulfate 325 MG TAB PO SCH ×2 (08:34→17:27)
[2020-09-20] MEDS: Prenatal Vitamin 1 TAB PO SCH (08:34)
[2020-09-20] MEDS: Docusate Calcium (SURFAK) 240 MG CAP PO SCH ×2 (08:34→21:50)
[2020-09-20] MEDS: HYDROcodone/Acetaminophen 5/325 mg Tablet PO PRN ×3 (11:10→23:34)
[2020-09-21] MEDS: Ibuprofen 800 MG TAB PO SCH (05:54)
[2020-09-21] MEDS: Lactated Ringer's 1,000 ML IV SCH (06:03)
--- NOTE | 2020-09-21 06:31 | PDOC.PP ---
Post Progress Note Post Day #: 2 Subjective: Required norco 5 x 2 yesterday due to 8/10 pain. States pain is mild now. + Flatus. Able to eat well without nausea. Ambulated throughout the unit yesterday. Ready to go home today. PO intake tolerated: yes Flatus: yes Ambulation: yes Vital Signs (12 hours) Temp Pulse Resp BP Pulse Ox 09/21/20 04:50 98.6 F 89 18 109/72 100 09/21/20 00:06 98.3 F 91 18 128/60 98 09/20/20 19:40 98.8 F 88 18 114/59 L 99 Weight Weight 111.13 kg - Physical Examination General: NAD Cardiovascular: no m/r/g, RRR Respiratory: clear to auscultation bilaterally, non-labored breathing Abdominal: + bowel sounds, lochia (scant), no distention, appropriately TTP Extremities: negative homans (B) Skin: CS incision dry & intact, no rash Neurological: no gross focal deficits Psychiatric: A&Ox3 Result Diagrams: 09/20/20 07:26 09/17/20 21:05 Additional Labs: Post Labs Hep Bs Antigen Non-Reactive S/CO (NonReactive) 09/17/20 21:05 Blood Type A POSITIVE 09/17/20 21:31 - Assessment/Plan 20YO who is PP day #2 s/p pLTCS @ 37.6 WGA for arrest of dilation, maternal exhaustion & patient's request. PP day #2 s/p pLTCS -+flatus -Pain well controlled on current regimen -Ambulating without exacerbation of pain Gestational Diabetes with hx of excessive weight gain in this > 35 lbs -fasting glucose this am was 75 -has been txt'd with diet and exercise counseling -Needs DMII screen 6 weeks PP. Tobacco use in -[place] Hx of bipolar disorder -[place], currently not on medication -Needs to f/u with [facility] PP iron deficiency anemia during -[place] -admission H/H 9.9/28.7. Repeat PP day 1 was 8.7/25.2. Will continue PO iron & PNVs PCP: TORIBIO: Nusrat/Stephen Plan: Continue routine post-C/S care. Plan to dc today. Addendum - Attending - Attending Attestation Date/Time: 09/21/20902 I personally evaluated the patient and discussed the management with Dr. Motta. I agree with the History, Examination, Assessment and Plan documented above with any addition or exceptions noted below. Pain controlled. d/c home today. prosper sent through [facility] EMR. f/u friday at clinic for incision check.
[2020-09-21 08:29] VITALS: BP 117/68; TEMP 98.4
[2020-09-21] MEDS: Ferrous Sulfate 325 MG TAB PO SCH (08:34)
[2020-09-21] MEDS: Prenatal Vitamin 1 TAB PO SCH (08:34)
[2020-09-21] MEDS: Docusate Calcium (SURFAK) 240 MG CAP PO SCH (08:35)
== END 2020-09-21 10:30 | disposition home or self-care (01) | DRG 787 ==
LOC: L&D 18:30 → 3SE 09-19 22:02
PROVIDERS: ADMIT Family Medicine; ATTEND Family Medicine
PROC: 10D00Z1 Extraction of Products of Conception, Low, Open Approach (ICD-10-PCS; principal; 2020-09-19)
DX: O36.5930 Maternal care for other known or suspected poor fetal growth, third trimester, not applicable or unspecified (principal); O98.82 Other maternal infectious and parasitic diseases complicating childbirth; D62 Acute posthemorrhagic anemia; Z3A.37 37 weeks gestation of pregnancy; Z37.0 Single live birth; O24.429 Gestational diabetes mellitus in childbirth, unspecified control; O99.02 Anemia complicating childbirth; O99.214 Obesity complicating childbirth; E66.9 Obesity, unspecified; O99.344 Other mental disorders complicating childbirth; F31.9 Bipolar disorder, unspecified; B95.1 Streptococcus, group B, as the cause of diseases classified elsewhere; O76 Abnormality in fetal heart rate and rhythm complicating labor and delivery; O62.0 Primary inadequate contractions; O75.81 Maternal exhaustion complicating labor and delivery; O64.0XX0 Obstructed labor due to incomplete rotation of fetal head, not applicable or unspecified; O62.4 Hypertonic, incoordinate, and prolonged uterine contractions
CPT/HCPCS: 36415; 36416; 51702; 82805; 82947; 85014; 85018; 85027; 86780; 86850; 86900; 86901; 87340; J1885; J2175; J2250; J2270; J2405; J2540; J2550; J2590; J3010; J3490

== ENCOUNTER 2021-01-07 11:30 | Emergency (ER) | payer OTHER ==
[2021-01-07] MEDS ORDERED: Lidocaine 1% w/Epinephrine 1:100K 20 ML VIAL ONE (11:54)
[2021-01-07] MEDS ORDERED: Lidocaine 4% Cream 5 GM TUBE w/ Tegaderm ONE (11:56)
[2021-01-07] MEDS ORDERED: Bacitracin 1 PK ONE ×2 (12:54→12:58)
[2021-01-07] MEDS ORDERED: Boostrix 0.5 ML (Tdap) VIAL ONE (12:54)
== END 2021-01-07 13:30 ==
LOC: ERS 11:30 → EEVIPCON 11:30 → ERS 13:30
DX: S01.81XA Laceration without foreign body of other part of head, initial encounter (principal); F17.210 Nicotine dependence, cigarettes, uncomplicated; Y09 Assault by unspecified means
CPT/HCPCS: 12052; 90471; 90715

== ENCOUNTER 2021-04-29 18:49 | Emergency (ER) | payer OTHER ==
[2021-04-29 19:39] LABS: #Eosinphils 0.2 thou/uL (0.0-0.7); #Lymphocytes 2.1 thou/uL (1.20-3.40); #Monocytes 0.4 thou/uL (0.11-0.59); #Neutrophils 1.8 thou/uL (1.40-6.50); %Basophils 0.7 % (0.0-1.0); %Lymphocytes 45.3 % (21.0-51.0); %Monocytes 9.3 % (0.0-10.0); %Neutrophils 40.7 % (42.0-75.0); Hemoglobin 12.6 g/dL (12.0-16.0); Mean Corpuscular HGB CONC 34.5 g/dL (32.0-36.0); Mean Corpuscular Hemoglobin 30.5 pg (27.0-31.0); Mean Corpuscular Volume 88.2 fL (78.0-98.0); Mean Platelet Volume 9.9 fL (7.4-10.4); Platelet Count 211 thou/uL (130-400); Red Blood Cell (RBC) Count 4.14 mill/uL (4.20-5.40); White Blood Cell (WBC) Count 4.5 thou/uL (4.8-10.8)
== END 2021-04-29 21:40 | disposition home or self-care (01) ==
LOC: ERS 18:49
DX: O20.0 Threatened abortion (principal)
CPT/HCPCS: 36415; 76856; 84702; 85025; 86900; 86901

== ENCOUNTER 2021-08-06 20:14 | Emergency (ER) | payer OTHER ==
[2021-08-06 21:06] LABS: Bilirubin Negative (Negative); Blood, Urine Negative (Negative); Clarity Clear (Clear); Glucose, Urine (Dipstick) Normal (Negative); Ketone, Urine Negative (Negative); Leukocyte Negative Leu/uL (Negative); Nitrite Negative (Negative); Protein, Urine (Dipstick) Negative (Neg-Trace); Specific Gravity, Urine 1.019 (1.002-1.036); Urobilinogen Normal mg/dL (Less than 2)
[2021-08-06 21:42] LABS: #Basophils 0.1 thou/uL (0.0-0.2); #Eosinphils 0.2 thou/uL (0.0-0.7); #Lymphocytes 2.5 thou/uL (1.20-3.40); #Monocytes 0.6 thou/uL (0.11-0.59); #Neutrophils 3.6 thou/uL (1.40-6.50); %Basophils 1.2 % (0.0-1.0); %Eosinophils 2.6 % (0.0-10.0); %Neutrophils 51.3 % (42.0-75.0); Hemoglobin 13.1 g/dL (12.0-16.0); Mean Corpuscular HGB CONC 33.5 g/dL (32.0-36.0); Mean Corpuscular Hemoglobin 29.3 pg (27.0-31.0); Mean Corpuscular Volume 87.3 fL (78.0-98.0); Mean Platelet Volume 9.4 fL (7.4-10.4); Platelet Count 249 thou/uL (130-400); RBC Distribution Width 12.5 % (11.5-14.5); Red Blood Cell (RBC) Count 4.49 mill/uL (4.20-5.40); White Blood Cell (WBC) Count 6.9 thou/uL (4.8-10.8)
== END 2021-08-06 23:59 ==
LOC: ERS 20:14
DX: O99.891 Other specified diseases and conditions complicating pregnancy (principal); R10.84 Generalized abdominal pain; O99.331 Smoking (tobacco) complicating pregnancy, first trimester; F17.210 Nicotine dependence, cigarettes, uncomplicated; Z3A.01 Less than 8 weeks gestation of pregnancy
CPT/HCPCS: 36415; 76856; 81003; 84702; 85025; 86900; 86901

== ENCOUNTER 2021-09-25 22:06 | Emergency (ER) | payer OTHER ==
[2021-09-26 14:00] LABS: SARS-CoV-2 PCR by NAA Not Detected (NotDetected)
== END 2021-09-26 00:53 | disposition home or self-care (01) ==
LOC: ERS 22:06
DX: O99.891 Other specified diseases and conditions complicating pregnancy (principal); R05.9 Cough, unspecified; R50.9 Fever, unspecified; Z20.822 Contact with and (suspected) exposure to COVID-19; O24.419 Gestational diabetes mellitus in pregnancy, unspecified control
CPT/HCPCS: 71045; U0003; U0005

== ENCOUNTER 2024-05-20 23:58 | Emergency (ER) | payer SELFPAY ==
[2024-05-21] MEDS ORDERED: Lorazepam 2 MG/ML VIAL ONE (00:09)
[2024-05-21 01:49] LABS: Amphetamine Detected (NotDetected); Barbiturates Screen Not Detected (NotDetected); Benzodiazepine Screen Not Detected (NotDetected); Cocaine Metabolite Screen Not Detected (NotDetected); Methadone Not Detected (NotDetected); Methamphetamine Detected (NotDetected); Opiate Screen Not Detected (NotDetected); Oxycodone Screen Not Detected (NotDetected); Phencyclidine (PCP) Not Detected (NotDetected); THC/Cannabinoid Screen Detected (NotDetected); Tricyclic Screen Not Detected (NotDetected)
== END 2024-05-21 01:38 | disposition home or self-care (01) ==
LOC: ERS 23:58
DX: F15.20 Other stimulant dependence, uncomplicated (principal); F12.10 Cannabis abuse, uncomplicated; F17.210 Nicotine dependence, cigarettes, uncomplicated
CPT/HCPCS: 80306; 96372; 99283; J2060

== ENCOUNTER 2025-08-02 12:51 | Emergency (ER) | payer OTHER, SELFPAY ==
[2025-08-02] MEDS ORDERED: CEFAZOLIN 2 GM VIAL ONE (15:32)
[2025-08-02] MEDS ORDERED: Lidocaine 1% w/Epinephrine 1:100K 20 ML VIAL ONE (15:53)
[2025-08-02 16:46] LABS: #Basophils 0.03 10x3/uL (0.0-0.2); #Eosinophils 0.05 10x3/uL (0.0-0.7); #Monocytes 0.67 10x3/uL (0.11-0.59); #Neutrophils 8.39 10x3/uL (1.40-6.50); %Basophils 0.3 % (0.0-1.0); %Eosinophils 0.5 % (0.0-10.0); %Lymphocytes 14.9 % (21.0-51.0); %Monocytes 6.2 % (0.0-10.0); %Neutrophils 77.7 % (42.0-75.0); Hematocrit 39.5 % (36.0-47.0); Hemoglobin 12.9 g/dL (12.0-16.0); Mean Corpuscular Hemoglobin 28.7 pg (27.0-31.0); Mean Corpuscular Volume 87.8 fL (78.0-98.0); Platelet Count 280 10x3/uL (130-400); Red Blood Cell (RBC) Count 4.50 mill/uL (4.20-5.40); White Blood Cell (WBC) Count 10.79 10x3/uL (4.8-10.8)
[2025-08-02] MEDS ORDERED: Acetaminophen/Codeine 30-300mg Tablet ONE (16:47)
[2025-08-02 17:07] LABS: BHCG - Serum Negative (NEGATIVE); Pregs Control Background? CLEAR/WHITE (CLR/WHITE); Pregs Control Bar Appear? YES (CONTROL BAR)
[2025-08-02 17:13] LABS: ALT (SGPT) 19 U/L (Less than 34); AST (SGOT) 25 U/L (11-34); Albumin 3.8 g/dL (3.1-4.5); Alkaline Phosphatase 68 U/L (40-110); Anion Gap 13 mmol/L (10-20); BUN (Urea Nitrogen) 9 mg/dL (7.0-18.7); Bilirubin, Total 0.2 mg/dL (0.3-1.2); Calc. Creatinine Clearance 0 mL/min (70-130); Calcium 9.1 mg/dL (7.8-10.44); Carbon Dioxide 27 mmol/L (22-29); Chloride 105 mmol/L (98-107); Globulin 3.1 g/dL (2.4-3.5); Glucose 94 mg/dL (70-105); Potassium 4.1 mmol/L (3.5-5.1); Sodium 141 mmol/L (136-145)
== END 2025-08-02 17:49 ==
LOC: ERS 12:51
DX: S01.01XA Laceration without foreign body of scalp, initial encounter (principal); S41.111A Laceration without foreign body of right upper arm, initial encounter; S80.212A Abrasion, left knee, initial encounter; S80.211A Abrasion, right knee, initial encounter; F17.210 Nicotine dependence, cigarettes, uncomplicated; X58.XXXA Exposure to other specified factors, initial encounter
CPT/HCPCS: 12002; 36415; 70450; 71045; 72125; 80053; 84703; 85025